=== PATIENT | male | born 1995 | race Caucasian/White ===

== ENCOUNTER 2018-06-30 23:20 | Emergency (ER) | payer OTHER ==
[~2018-06-30] VITALS: Ht 170.2 cm; Wt 81.8 kg
[2018-06-30 23:21] VITALS: BP 159/65
[2018-06-30] MEDS ORDERED: diphenhydrAMINE INJ 50MG/ML VIAL (J1200) IM STA (23:48)
[2018-06-30] MEDS ORDERED: BENA25CA4 PO (23:58)
== END 2018-07-01 00:15 | disposition home or self-care (01) ==
LOC: M ED 23:20
DX: R21 Rash and other nonspecific skin eruption (principal); T50.B15A Adverse effect of smallpox vaccines, initial encounter; X58.XXXA Exposure to other specified factors, initial encounter; Y92.89 Other specified places as the place of occurrence of the external cause
CPT/HCPCS: 96372; 99283; J1200